=== PATIENT | male | born 1950 | race Caucasian/White ===

== ENCOUNTER 2017-04-10 16:34 | Emergency (ER) | payer MEDICARE, OTHER ==
[~2017-04-10] VITALS: Ht 188 cm; Wt 93.0 kg
[2017-04-10] MEDS ORDERED: NORVASC2.5 MG PO (16:42)
[2017-04-10] MEDS ORDERED: LISINOPRIL10 MG PO (16:42)
[2017-04-10 17:44] VITALS: BP 146/89
== END 2017-04-10 17:45 | disposition home or self-care (01) ==
LOC: M.ERS 16:34
DX: S61.216A Laceration without foreign body of right little finger without damage to nail, initial encounter (principal); W26.8XXA Contact with other sharp object(s), not elsewhere classified, initial encounter; Y93.G3 Activity, cooking and baking; Y92.89 Other specified places as the place of occurrence of the external cause; Y99.8 Other external cause status

== ENCOUNTER 2019-12-28 16:20 | Emergency (ER) | payer MEDICARE, OTHER ==
[~2019-12-28] VITALS: Ht 188 cm; Wt 89.4 kg
[~2019-12-28 16:20] MED LIST: LISINOPRIL10 MG PO; NORVASC2.5 MG PO
[2019-12-28] MEDS ORDERED: ATORVASTATIN CA80 MG PO (16:57)
[2019-12-28] MEDS ORDERED: NORCO 5-325 TA1 EAC2 PO (18:44)
[2019-12-28 19:26] VITALS: BP 147/85
== END 2019-12-28 19:27 | disposition home or self-care (01) ==
LOC: M.ERS 16:20
DX: S61.217A Laceration without foreign body of left little finger without damage to nail, initial encounter (principal); I10 Essential (primary) hypertension; E78.5 Hyperlipidemia, unspecified; Z95.5 Presence of coronary angioplasty implant and graft; Z88.1 Allergy status to other antibiotic agents; W26.8XXA Contact with other sharp object(s), not elsewhere classified, initial encounter; Y93.89 Activity, other specified; Y92.89 Other specified places as the place of occurrence of the external cause; Y99.8 Other external cause status